=== PATIENT | female | born 1995 | race Caucasian/White ===

== ENCOUNTER 2017-05-17 19:14 | Emergency (ER) | payer MEDICAID, OTHER ==
[~2017-05-17] VITALS: Ht 157.5 cm; Wt 91.0 kg
[2017-05-17] MEDS ORDERED: IBUPROFEN 800MG TABLET PO ONE (20:30)
[2017-05-17 20:44] VITALS: BP 138/96
== END 2017-05-17 21:47 | disposition home or self-care (01) ==
LOC: ER 21:32
DX: S90.111A Contusion of right great toe without damage to nail, initial encounter (principal); X58.XXXA Exposure to other specified factors, initial encounter; Y93.89 Activity, other specified; Y99.8 Other external cause status; Y92.89 Other specified places as the place of occurrence of the external cause
CPT/HCPCS: 73630; 81025; 99284